=== PATIENT | female | born 1985 | race African-American/Black ===

== ENCOUNTER 2018-01-20 10:02 | Emergency (ER) | payer OTHER ==
[~2018-01-20] VITALS: Ht 170.2 cm; Wt 94.8 kg
[~2018-01-20 10:02] MED LIST: CLEOCIN HCL300 MG PO; IBUPROFEN 600600 M1 PO; NORCO 5-325 TA1 EACH PO; PENICILLIN V P500 MG PO
[2018-01-20] MEDS ORDERED: LABETALOL HCL100 MG PO (10:12)
[2018-01-20] MEDS ORDERED: AMARYL4 MG PO (10:13)
[2018-01-20] MEDS ORDERED: PRENATAL 19 TA1 EAC1 PO (10:13)
[2018-01-20 10:37] LABS: ABSOLUTE NEUTROPHILS 5.7 thou/uL (1.4-8.2); BASOPHILS 0.7 % (0.0-2.0); EOSINOPHILS 0.8 % (0.0-3.0); HEMATOCRIT 36.1 % (37.0-47.0); HEMOGLOBIN 11.6 gm/dL (12.0-15.0); LYMPHOCYTES 23.3 % (24.0-44.0); MCH 24.3 pg (26.0-34.0); MCHC 32.1 g/dL (28.0-37.0); MCV 75.6 fL (80.0-100.0); MONOCYTES 6.9 % (1.0-8.0); PLATELET COUNT 246 thou/uL (150-400); POLYS 68.3 % (36.0-66.0); RBC 4.77 mil/uL (4.20-5.00); RDW 12.8 % (10.5-14.5); WBC 8.4 thou/uL (4.0-11.0)
[2018-01-20 10:47] LABS: CALCIUM 9.3 mg/dL (8.5-10.1); CREATININE 0.8 mg/dL (0.6-1.0); POTASSIUM 4.1 mmol/L (3.5-5.1)
[2018-01-20] MEDS ORDERED: FLAGYL500 MG PO (13:31)
[2018-01-20 13:44] VITALS: BP 118/75
[2018-01-23 14:46] LABS: NEISSERIA GONORRHEA-PCR Negative (Negative)
== END 2018-01-20 13:45 | disposition home or self-care (01) ==
LOC: ER 10:02
PROVIDERS: Emergency Medicine
DX: O36.4XX1 Maternal care for intrauterine death, fetus 1 (principal); O23.591 Infection of other part of genital tract in pregnancy, first trimester; Z88.1 Allergy status to other antibiotic agents; Z88.0 Allergy status to penicillin; Z3A.08 8 weeks gestation of pregnancy